=== PATIENT | female | born 2000 | race Caucasian/White ===

== ENCOUNTER 2021-03-22 09:41 | Emergency (ER) | payer OTHER, MEDICAID ==
[~2021-03-22] VITALS: Ht 162.6 cm; Wt 87.5 kg
[2021-03-22] MEDS ORDERED: ENBRACE HR SOF1 EACH PO (09:55)
[2021-03-22 10:24] VITALS: BP 121/70
== END 2021-03-22 10:26 | disposition home or self-care (01) ==
LOC: M.ERS 09:41
DX: J06.9 Acute upper respiratory infection, unspecified (principal); Z20.822 Contact with and (suspected) exposure to COVID-19; Z90.49 Acquired absence of other specified parts of digestive tract; Z79.899 Other long term (current) drug therapy